=== PATIENT | male | born 1985 | race Two or more races ===

== ENCOUNTER 2020-06-08 09:13 | Emergency (ER) | payer MEDICAID ==
[~2020-06-08] VITALS: Ht 175.3 cm; Wt 129.0 kg
[2020-06-08] MEDS ORDERED: CYCLOBENZAPRINE 10MG TABLET PO ONE (09:30)
[2020-06-08] MEDS ORDERED: KETOROLAC 30MG/ML VIAL IM ONE (09:30)
[2020-06-08 10:02] VITALS: BP 153/70
== END 2020-06-08 10:38 | disposition home or self-care (01) ==
LOC: ER 09:13
DX: M54.5 Low back pain (principal)
CPT/HCPCS: 72100; 96372; 99283; J1885

== ENCOUNTER 2020-06-16 18:41 | Emergency (ER) | payer MEDICAID ==
[~2020-06-16] VITALS: Ht 175.3 cm; Wt 133.0 kg
[2020-06-16] MEDS ORDERED: KETOROLAC 60MG/2ML VIAL IM ONE (20:15)
[2020-06-16 21:37] LABS: CLARITY URINE CLEAR (CLEAR); COLOR URINE YELLOW (YELLOW); KETONES URINE NEGATIVE (NEGATIVE); LEUKOCYTE ESTERASE URINE NEGATIVE (NEGATIVE); NITRITE URINE NEGATIVE (NEGATIVE); OCCULT BLOOD URINE NEGATIVE (NEGATIVE); PROTEIN URINE NEGATIVE (NEGATIVE); SPECIFIC GRAVITY URINE 1.022 (1.005-1.030)
[2020-06-16 21:43] VITALS: BP 156/100
== END 2020-06-16 22:33 | disposition home or self-care (01) ==
LOC: ER 18:41
DX: Q55.29 Other congenital malformations of testis and scrotum (principal)
CPT/HCPCS: 76870; 81003; 87086; 93976; 96372; 99284; J1885